=== PATIENT | male | born 1965 | race African-American/Black ===

== ENCOUNTER 2021-05-11 15:24 | Emergency (ER) | payer OTHER, MEDICAID ==
[~2021-05-11] VITALS: Ht 180.3 cm; Wt 82.0 kg
[2021-05-11 16:00] VITALS: BP 132/84
[2021-05-11] MEDS ORDERED: KETOROLAC 30MG/ML VIAL IV STA (16:17)
[2021-05-11] MEDS ORDERED: ONDANSETRON HCL 4MG/2ML INJ IV STA (16:17)
[2021-05-11] MEDS ORDERED: SODIUM CHLORIDE 0.9% 1,000 ML IV ONE (16:30)
== END 2021-05-11 17:00 | disposition left against medical advice (07) ==
LOC: ER 15:24
DX: R19.7 Diarrhea, unspecified (principal)
CPT/HCPCS: 93005; 99283; J7030